=== PATIENT | male | born 1985 ===

== ENCOUNTER 2018-06-20 13:06 | Emergency (ER) | payer SELFPAY ==
[~2018-06-20] VITALS: Ht 167.6 cm; Wt 102.7 kg
[2018-06-20 13:13] VITALS: BP 134/86; PULSE 104; RESP 20; Ht 167.6 cm; Wt 102.7 kg
== END 2018-06-20 16:12 | disposition left against medical advice (07) ==
LOC: FTE 13:06
DX: Z53.21 Procedure and treatment not carried out due to patient leaving prior to being seen by health care provider (principal)